=== PATIENT | male | born 1995 | race Caucasian/White ===

== ENCOUNTER 2019-05-15 16:49 | Emergency (ER) | payer OTHER, SELFPAY ==
--- NOTE | ~2019-05-15 | XR_ITS ---
XR ankle LT min 3V 05/15/2019 17:38 INDICATION: Left ankle pain and swelling after twisting injury PROCEDURE: Or views left ankle COMPARISON: No prior studies for comparison. FINDINGS: Fracture, dislocation or subluxation is not identified. Ankle mortise intact. Mild lateral soft tissue swelling. No foreign bodies are identified. IMPRESSION: 1: NO ACUTE BONE OR JOINT ABNORMALITY IDENTIFIED. Reviewed, dictated and finalized at location A. ATTENDANT
[2019-05-15 17:17] VITALS: BP 154/84; PULSE 111; RESP 20; TEMP 37.4; O2SAT 100
--- NOTE | 2019-05-15 17:46 | ED.LOWEXIN ---
HPI - Extremity Injury (Lower) General Chief Complaint: Extremity Injury, Lower Stated Complaint: L ANKLE INJURY Time Seen by Provider: 05/15/19 17:31 Source: patient Mode of arrival: wheelchair Limitations: no limitations History of Present Illness HPI Narrative: This is a 23 year old male that presents to the ER for left ankle pain after an injury today. Reports he was playing basketball and was jumping and landed on his left ankle twisting it. Reports pain and swelling to the lateral ankle. Reports he was able to walk, with pain. Denies decreased ROM or numbness. Related Data Home Medications Medication Instructions Recorded Confirmed No Home Medications 05/15/19 05/15/19 Allergies Allergy/AdvReac Type Severity Reaction Status Date / Time No Known Allergies Allergy Verified 05/15/19 17:29 Review of Systems Review of Systems: Narrative: CONSTITUTIONAL: Denies fever MUSCULOSKELETAL: Reports joint pain, and myalgia. NEUROLOGIC: Denies numbness, or weakness. All systems reviewed & are unremarkable except as noted in HPI and below PMFSH Past Medical History Medical History (Updated 05/15/19 @ 18:32 by Barb Leal PA-C) Healthy male adult Social History Social History (Updated 05/15/19 @ 17:46 by aBrb Leal PA-C) Smoking status: Never smoker Exam Narrative: Exam Narrative: GENERAL: Well-appearing, well-nourished, and in no acute distress. HEAD: Normocephalic, atraumatic. EYES: EOMI. EXTREMITIES: Normal range of motion. Mild swelling about the left lateral malleoli. Normal sensation. Normal DP pulses SKIN: Warm, dry, no rash. NEURO: No focal deficits. Alert and oriented x3. PSYCH: Normal mood and affect Course Vital Signs Vital signs: Vital Signs Temperature 99.4 F 05/15/19 17:17 Pulse Rate 111 H 05/15/19 17:17 Respiratory Rate 05/15/19 17:17 Blood Pressure 154/84 H 05/15/19 17:17 Pulse Oximetry 100 05/15/19 17:17 Temperature 99.4 F 05/15/19 17:17 Pulse Rate 111 H 05/15/19 17:17 Respiratory Rate 05/15/19 17:17 Blood Pressure 154/84 H 05/15/19 17:17 Pulse Oximetry 100 05/15/19 17:17 MDM - Extremity Injury (Lower) MDM Narrative Medical decision making narrative: Patient presents emergency department for left ankle pain after a twisting injury today. Left ankle x-rays without acute changes. Patient was instructed on care of ankle sprain. He is to follow-up with primary care doctor. He was given warnings to return to the ER Imaging Data Radiologist's impression: ITS Impressions Ankle X-Ray 05/15/19 17:43 IMPRESSION: 1: NO ACUTE BONE OR JOINT ABNORMALITY IDENTIFIED. Critical Care Time Critical Care Time Critical Care Time: No Discharge Plan Discharge Clinical Impression: Left ankle sprain Qualifiers: Encounter type: initial encounter Involved ligament of ankle: anterior talofibular ligament Qualified Code(s): S93.492A - Sprain of other ligament of left ankle, initial encounter Patient Disposition: Home, Self-Care Condition: Stable Instructions: Ankle Sprain (ED) Additional Instructions: Return to the emergency department if you experience fever, redness and swelling of your leg, or any other symptoms that are concerning to you Wear JENNIFER wrap and use crutches. No weight on the affected leg until able to bear weight without pain. Ice and elevate extremity. Tylenol or ibuprofen as needed for pain Follow up with your doctor for further care. Prescriptions: No Action No Home Medications RF: 0 Interventions: Discharge Disposition Last Done: 05/15/19 18:27 Follow-up/Referrals: PHYSICIAN,FRUIT WORKER [Primary Care Provider] - Kareem Rajput MD [Physician] - 1 Week Time of Disposition: 18:32
[2019-05-15 18:49] VITALS: BP 153/94; PULSE 100; RESP 16; O2SAT 100
== END 2019-05-15 19:00 | disposition home or self-care (01) ==
PROVIDERS: Emergency Provider Emergency Medicine
DX: S93.492A Sprain of other ligament of left ankle, initial encounter (principal); X50.9XXA Other and unspecified overexertion or strenuous movements or postures, initial encounter
CPT/HCPCS: 73610; 99283